=== PATIENT | female | born 1955 | race Caucasian/White ===

== ENCOUNTER → 2021-04-13 | Outpatient (CLI) | payer OTHER ==
[2016-01-03 07:43] VITALS: BP 138/80
[~2021-04-13] MED LIST: ALPR0.5T PO; ATOR40TA59 PO; BUPR150T15 PO; DULO30CA2 PO; DULO60CA6 PO; ESOM40CA PO; GABA800T PO; INSU100C4 SQ; INSU100I13 SQ; LAMO100T5 PO; LAMO100T8 PO; LEVO50TA PO; LOSA1TAB19 PO; METF10007 PO; METO-239 PO; OMEP20CA16 PO; PANT40TA77 PO; PRIM50TA PO; SALM50DI2 IH; TRAZ-123 PO
[2021-04-13 13:53] LABS: BASO # 0.1 x10^3/uL (0.0-0.2); BASO % 1 % (0-3); EOS # 0.1 x10^3/uL (0.0-0.7); EOS % 1 % (0-3); HEMATOCRIT 38.4 % (36.0-47.0); HEMOGLOBIN 12.5 g/dL (12.0-15.5); LYMPH # 2.1 x10^3/uL (1.0-4.8); LYMPH % 21 % (24-48); MEAN CORPUSCULAR HEMOGLOBIN 26 pg (25-35); MEAN CORPUSCULAR HGB CONC 33 g/dL (31-37); MEAN CORPUSCULAR VOLUME 79 fL (79-100); MONO # 0.9 x10^3/uL (0.0-1.1); MONO % 8 % (0-9); NEUT % 69 % (31-73); PLATELET COUNT 343 x10^3/uL (140-400); RED BLOOD COUNT 4.88 x10^6/uL (3.50-5.40); RED CELL DISTRIBUTION WIDTH 14.9 % (11.5-14.5); WHITE BLOOD COUNT 10.2 x10^3/uL (4.0-11.0)
--- NOTE | 2021-04-13 14:06 | EKG ---
[facility] [address] [place] [address] Test Date: 2021-04-13 Test Time: 13:58:18 Pat Name: JIM MCELROY Department: Room: Gender: F Manager [employer]: : 1955 Requested By: CLAUDINE PALMA Order Number: [id number] Reading MD: Konstantin Corea MD Measurements Intervals [place] Rate: 54 P: 34 WI: 130 QRS: 73 QRSD: 72 T: 67 QT: 420 QTc: 400 Interpretive Statements SINUS RHYTHM Electronically Signed On 04-16-2021 13:35:45 CDT by Konstantin Corea MD
[2021-04-13 14:11] LABS: ALBUMIN 4.2 g/dL (3.4-5.0); ALBUMIN/GLOBULIN RATIO 1.3 (1.0-1.7); GFR 55.8; POTASSIUM 4.6 mmol/L (3.5-5.1); TOTAL BILIRUBIN 0.3 mg/dL (0.2-1.0); TOTAL PROTEIN 7.5 g/dL (6.4-8.2)
[2021-04-13 14:21] LABS: FREE T4 1.09 ng/dL (0.76-1.46); THYROID STIM HORMONE (TSH) 1.142 uIU/mL (0.358-3.74)
--- NOTE | 2021-04-13 15:07 | RAD ---
EXAM: Chest, 2 views. HISTORY: Preoperative evaluation. COMPARISON: None. FINDINGS: 2 views of the chest are obtained. There is no infiltrate, pleural effusion or pneumothorax . The heart is normal in size. There is internal fixation of a left clavicle fracture. IMPRESSION: No acute pulmonary finding. Electronically signed by: Tiffanie Valadez MD (04/13/2021 3:04 PM) [id number]
[2021-04-13 15:10] LABS: BILIRUBIN,URINE NEGATIVE (NEG); CLARITY,URINE CLEAR; COLOR,URINE YELLOW; NITRITE,URINE NEGATIVE (NEG); PROTEIN,URINE NEGATIVE (NEG-TRACE); UROBILINOGEN,URINE 0.2 mg/dL (0.2 mg/dL)
[2021-04-13 15:39] LABS: BACTERIA,URINE MODERATE /HPF (0-FEW); WBC,URINE >40 /HPF (0-4)
[2021-04-13 15:40] LABS: RBC,URINE OCC /HPF (0-2)
[2021-04-14 01:13] LABS: HEMOGLOBIN A1C 7.1 % (4.8-5.6)
== END ==
LOC: SURGPAT 12:32
PROVIDERS: ATTEND Obstetrics & Gynecology
DX: Z01.818 Encounter for other preprocedural examination (principal); E03.9 Hypothyroidism, unspecified; E11.9 Type 2 diabetes mellitus without complications; R94.31 Abnormal electrocardiogram [ECG] [EKG]
CPT/HCPCS: 36415; 71046; 80053; 81001; 83036; 84439; 84443; 85025; 87077; 87086; 93005

== ENCOUNTER 2021-04-19 06:03 | Observation (INO) | payer OTHER ==
[2021-04-13 13:52] VITALS: BP 151/70
[2021-04-19] VITALS (10 sets, daily range): BP systolic 106–152; BP diastolic 50–70
[~2021-04-19] VITALS: Ht 160 cm; Wt 76.5 kg
[~2021-04-19 06:03] MED LIST changes: +HYDROmorphone 2 MG/ML VIAL IVP PRN; +IV RINGERS,LACTATED 1000ML 1,000 ML IV SCH; +MORPHINE SULFATE 2 MG/ML VIAL. IVP PRN; +PROCHLORPERAZINE 10 MG/2 ML VIAL. IVP PRN; +fentaNYL PF VIAL 100 MCG/2 ML VIAL IVP PRN
[2021-04-19] MEDS ORDERED: CLON0.5T PO (06:23)
[2021-04-19] MEDS: INSULIN LISPRO 100 UNIT/ML 3ML VIAL for OP,RR ONLY. SQ PRN ×2 (06:33→10:54)
[2021-04-19] MEDS ORDERED: INSULIN LISPRO 100 UNIT/ML 3ML VIAL for OP,RR ONLY. SQ ONE (06:35)
[2021-04-19] MEDS ORDERED: BUPIVACAINE-EPI 0.25% 30 ML VIAL KIT. ONE (06:55)
[2021-04-19] MEDS ORDERED: 0.9 % SODIUM CHLORIDE 20 ML VIAL. IJ ONE (06:56)
[2021-04-19] MEDS ORDERED: ceFAZolin 2GM PREMIX 2 GM/50 ML BAG IV ONE (07:00)
[2021-04-19] MEDS ORDERED: ESTROGENS, CONJ VAGINAL CREAM 30GM TUBE. ONE (07:03)
[2021-04-19] MEDS ORDERED: PROPOFOL 10 MG/ML (20ML) VIAL. IV ONE (07:08)
[2021-04-19] MEDS ORDERED: fentaNYL PF VIAL 100 MCG/2 ML VIAL ONE ×2 (07:08→07:55)
[2021-04-19] MEDS ORDERED: LIDOCAINE 2% PF 5 ML VIAL. ONE (07:08)
[2021-04-19] MEDS ORDERED: ROCURONIUM 50 MG/5 ML VIAL. ONE (07:08)
[2021-04-19] MEDS ORDERED: GLYCOPYRROLATE 1 MG/5 ML VIAL. ONE (07:18)
[2021-04-19] MEDS ORDERED: NEOSTIGMINE METHYLSULFATE 5 MG/5 ML SYRINGE. ONE (08:01)
[2021-04-19] MEDS ORDERED: SEVOFLURANE 61 TO 120 MINUTES. IH ONE (08:02)
[2021-04-19] MEDS ORDERED: ONDANSETRON PF 4 MG/2 ML VIAL. ONE (08:02)
[2021-04-19] MEDS ORDERED: BUPIVACAINE-EPI 0.25% 30 ML VIAL KIT. INJ ONE (08:13)
[2021-04-19] MEDS ORDERED: ESTROGENS, CONJ VAGINAL CREAM 30GM TUBE. VG ONE (09:49)
--- NOTE | 2021-04-19 10:06 | PDOC ---
BRIEF OPERATIVE NOTE Date: April 19, 2021 Pre-Op Diagnosis 2 cystocele, 3rd degree rectocele Post-Op Diagnosis same Procedure Performed anterior and posterior repair with perineoplasty Surgeon Dr. Danielle Palma Anesthesiologist Dr. Salazar Anesthesia Type: General Blood Loss 30cc IV Fluid 1200cc Urine Output 450cc clear via waggoner Specimens Obtained none Findings 2nd degree cystocele and 3rd degree rectocele Complications none Operative Note [id number] DANIELLE PALMA MD April 19, 2021 10:06
[2021-04-19] MEDS ORDERED: MAG HYDROX/ALUMINUM HYD/SIMETH 30 ML ORAL.SUSP PO PRN (10:15)
[2021-04-19] MEDS ORDERED: SIMETHICONE 80 MG TAB.CHEW PO PRN (10:15)
[2021-04-19] MEDS ORDERED: LACTULOSE 20 GM/30 ML SOLUTION. PO PRN (10:15)
[2021-04-19] MEDS ORDERED: MORPHINE SULFATE 2 MG/ML VIAL. IV PRN (10:15)
[2021-04-19] MEDS ORDERED: diphenhydrAMINE 50 MG/ML VIAL IV PRN (10:15)
[2021-04-19] MEDS ORDERED: oxyCODONE/APAP 5/325 1 TAB TABLET PO PRN (10:15)
[2021-04-19] MEDS ORDERED: diphenhydrAMINE HCL 25 MG CAPSULE PO PRN (10:15)
[2021-04-19] MEDS ORDERED: 0.9 % SODIUM CHLORIDE 10 ML DISP.SYRIN. IV PRN (10:15)
[2021-04-19] MEDS ORDERED: ONDANSETRON PF 4 MG/2 ML VIAL. IV PRN (10:15)
[2021-04-19] MEDS ORDERED: ZOLPIDEM 5 MG TABLET. PO PRN (10:15)
[2021-04-19] MEDS ORDERED: NALOXONE 0.4 MG/ML VIAL. IV PRN (10:15)
[2021-04-19] MEDS ORDERED: CALCIUM CARBONATE 500 MG TAB.CHEW PO PRN (10:15)
[2021-04-19] MEDS ORDERED: MAGNESIUM HYDROXIDE 2,400 MG/30 ML ORAL.SUSP. PO PRN (10:15)
[2021-04-19] MEDS ORDERED: HYDROcodone/APAP 5/325MG 1 TAB TABLET PO PRN (10:15)
--- NOTE | 2021-04-19 17:50 | OP ---
DATE OF SURGERY: 04/19/2021 PREOPERATIVE DIAGNOSIS: Cystocele and rectocele, desiring definitive therapy. POSTOPERATIVE DIAGNOSIS: Cystocele and rectocele, desiring definitive therapy. PROCEDURE: Anterior and posterior colporrhaphy with perineoplasty. SURGEON: Danielle Barone MD TECHNOLOGY RECRUITER: OR personnel. ANESTHESIOLOGIST: Dr. Salazar. ANESTHESIA: General. BLOOD LOSS: 30 mL URINE OUTPUT: 450 mL clear via Riley catheter INTRAVENOUS FLUIDS: 1200 mL of crystalloid. SPECIMENS: None. FINDINGS: Second-degree cystocele and a large third-degree rectocele. COMPLICATIONS: None. DESCRIPTION OF PROCEDURE: This patient was taken to the operating room where general anesthesia was placed. [facility] The patient's vagina was prepped and draped in the normal sterile fashion and a Riley catheter had been inserted under sterile technique. Upon my arrival, a time-out was performed. Once everyone agreed on the patient, the site and the procedure, the antibiotics; the procedure was initiated. Initially, a weighted speculum was placed in the patient's vagina. Tenaculum was used on the cervix and I put 2 Allises right above on the bladder reflection and pulled it out. A 60 mL of a dilute solution of 0.25% Marcaine with epinephrine and injectable saline was used, 50 mL of local to 200 mL of injectable saline was the dilution ratio, 60 mL was used anteriorly to inject all the way up to 1 cm below the urethral opening. A small vertical incision was made with the scalpel. Allis clamps were placed on either side of this. Metzenbaum scissors were used to open up the anterior vaginal mucosa and then the Allis clamps were placed along the way until we were at the top, they were fanned out on both sides. Metzenbaum scissors were used to sharply release the defect from the edges and an open Ray-Deisy 4 x 4 was used to gently push it up, 3-4 interrupted 2-0 sutures were placed to reduce the defect. The vaginal mucosa was trimmed and it was closed in a running locked fashion. The tenaculum was removed. There was no active bleeding. Now, the weighted speculum was removed and Kochers were placed at 4 and 7 o'clock at the gaping introitus. A 100 mL was used posteriorly to inject the perineal body and the rectocele defect of that dilute solution. Once this was done, a scalpel was used to take a ruel shaped wedge out of the perineal body and just inside the vaginal opening and Metzenbaum scissors were used to open up the posterior defect, placing Allis clamps along the way. This was much, much, much larger. Several Allises were used, about 10 interrupted sutures were placed to reduce the defect and tagged and going back and tying them and then 3 or 4 interrupted imbricating stitches were placed over the top to reinforce where it was kind of poking through in areas. Then, the Metzenbaum scissors again were used to trim the excess vaginal mucosa and it was closed in a running locked fashion, bringing together the perineal body and then ____ it and going back up in the vagina to tie it off almost like an episiotomy repair. Once this was done, everything was examined, it was hemostatic and looked good. Premarin vaginal packing cream was placed and the patient is currently being awakened from anesthesia. EYAD/BEATRICE/[facility] [place] DR: Forest TID: [id number]
--- NOTE | 2021-04-19 18:10 | NUR ---
Discharge Note: JIM MCELROY3 SO LND Discharge instructions and discharge home medications reviewed with Patient and a copy given. All questions have been answered and understanding verbalized. The following instructions and handouts were given: Anterior and Posterior Repair Care After Anterior and Posterior Repair Discontinued lines and drains: 20g L-FA peripheral IV removed. Catheter tip intact. Patient discharged to home with self-care via WC to private vehicle.
== END 2021-04-19 17:55 | disposition home or self-care (01) ==
LOC: SURG 06:03 → 3 SO LND 10:10
PROVIDERS: ADMIT Obstetrics & Gynecology; ATTEND Obstetrics & Gynecology
DX: N81.10 Cystocele, unspecified (principal); N81.6 Rectocele; Z79.899 Other long term (current) drug therapy; Z98.890 Other specified postprocedural states
CPT/HCPCS: 36415; 57260; 82962; 86850; 86900; 86901; 96374; A4314; A4930; G0378; G0379; J1815; J2270; J2405; J2704; J2710; J3010; J3490; J0690